=== PATIENT | male | born 1985 | race African-American/Black ===

== ENCOUNTER 2018-11-14 16:06 | Emergency (ER) | payer SELFPAY ==
[~2018-11-14] VITALS: Ht 188 cm; Wt 79.4 kg
[2018-11-14 16:15] VITALS: BP 129/84
[2018-11-14] MEDS ORDERED: AZITHROMYCIN 250 MG TABLET ONE (16:53)
[2018-11-14] MEDS ORDERED: AZITHROMYCIN 250 MG TABLET PO ONE (17:00)
== END 2018-11-14 17:33 | disposition home or self-care (01) ==
LOC: ER 16:08
DX: J40 Bronchitis, not specified as acute or chronic (principal)
CPT/HCPCS: 71046